=== PATIENT | male | born 1970 | race African-American/Black ===

== ENCOUNTER 2021-11-13 15:09 | Outpatient (CLI) | payer MEDICARE ==
[2021-11-13 16:39] LABS: Anion Gap 14 mmol/L (10-20); BUN (Urea Nitrogen) 10 mg/dL (8.9-20.6); Calc. Creatinine Clearance 0 mL/min (70-130); Calcium 9.7 mg/dL (7.8-10.44); Carbon Dioxide 30 mmol/L (22-29); Chloride 100 mmol/L (98-107); Glucose 81 mg/dL (70-105); Potassium 3.4 mmol/L (3.5-5.1); Sodium 141 mmol/L (136-145)
[2021-11-14 11:22] LABS: SARS-CoV-2 PCR by NAA Not Detected (NotDetected)
== END 2021-11-13 15:10 | disposition home or self-care (01) ==
LOC: CSHLAB 15:09
PROVIDERS: ATTEND Otolaryngology Otolaryngic Allergy
DX: Z01.818 Encounter for other preprocedural examination (principal); Z20.822 Contact with and (suspected) exposure to COVID-19
CPT/HCPCS: 80048; 93005; 93010; U0003; U0005

== ENCOUNTER 2021-11-18 09:26 | Observation (INO) | payer MEDICARE, MEDICAID ==
[2021-11-17 12:14] VITALS: BMI 35.5
[2021-11-18] MEDS ORDERED: Oxymetazoline HCl 0.05% ( 15 ML ) ONE (09:43)
[2021-11-18] MEDS ORDERED: Lidocaine 1% MPF 2 ML VIAL ONE (09:43)
[2021-11-18] MEDS ORDERED: Lidocaine 1% PF 5 ML VIAL ONE (10:16)
[2021-11-18] MEDS ORDERED: Ondansetron PF 4 MG/2 ML Vial ONE (10:16)
[2021-11-18] MEDS ORDERED: Rocuronium Bromide 10 MG/ML (10ML VIAL) ONE (10:16)
[2021-11-18] MEDS ORDERED: Midazolam HCl 2 mg/2 ml Vial ONE ×2 (10:16→10:33)
[2021-11-18] MEDS ORDERED: Fentanyl 250 MCG/5 ML VIAL ONE (10:16)
[2021-11-18] MEDS ORDERED: PROPOFOL 40 ML ONE (10:16)
[2021-11-18] MEDS ORDERED: Glycopyrrolate 0.2 MG/ML 5 ML SYRINGE ONE (10:17)
[2021-11-18] MEDS ORDERED: Dexamethasone 4 mg/ml Vial ONE (10:17)
[2021-11-18] MEDS ORDERED: Lidocaine 1% w/Epinephrine 1:100K 30 ML VIAL ONE (10:22)
[2021-11-18] MEDS ORDERED: Mupirocin 2% Ointment 22 GM Tube ONE (10:22)
[2021-11-18] MEDS ORDERED: CEFAZOLIN 1 GM VIAL ONE (10:23)
[2021-11-18] MEDS ORDERED: Ondansetron PF 4 MG/2 ML Vial IVP PRN (12:53)
[2021-11-18] MEDS ORDERED: Ondansetron ODT 4 MG TAB PO PRN (12:53)
[2021-11-18] MEDS ORDERED: Acetaminophen 325 MG TAB PO PRN (12:53)
[2021-11-18] MEDS ORDERED: Acetaminophen/Codeine 30-300mg Tablet PO PRN (12:57)
[2021-11-18] MEDS: Sodium Chloride 0.65% Nasal 44 ML BOT EA NARE SCH ×2 (16:35→21:29)
[2021-11-18] MEDS: AMOXicillin 250 MG CAP PO SCH (21:23)
[2021-11-19 05:27] VITALS: BP 129/74; TEMP 97.2
[2021-11-19] MEDS ORDERED: Loratadine 10 MG TAB PO SCH (09:00)
[2021-11-19] MEDS ORDERED: Hydrochlorothiazide 25 MG TAB PO SCH (09:00)
[2021-11-19] MEDS ORDERED: Amlodipine 5 MG TAB PO SCH (09:00)
[2021-11-19] MEDS ORDERED: Rosuvastatin 10 MG TAB PO SCH (09:00)
[2021-11-19] MEDS ORDERED: Montelukast Sodium 10 mg Tablet PO SCH (09:00)
[2021-11-19] MEDS ORDERED: Losartan Potassium 50 MG TAB PO SCH (09:00)
[2021-11-19] MEDS: AMOXicillin 250 MG CAP PO SCH (10:47)
[2021-11-19] MEDS: Sodium Chloride 0.65% Nasal 44 ML BOT EA NARE SCH (10:48)
== END 2021-11-19 09:21 | disposition home or self-care (01) ==
LOC: CSHSDC 09:26 → CSHERHOLD 11:04 → CSHTELE 14:50
PROVIDERS: ADMIT Otolaryngology Otolaryngic Allergy; ATTEND Otolaryngology Otolaryngic Allergy
DX: J34.3 Hypertrophy of nasal turbinates (principal); G47.33 Obstructive sleep apnea (adult) (pediatric); J34.2 Deviated nasal septum; J32.9 Chronic sinusitis, unspecified; J30.1 Allergic rhinitis due to pollen; J34.89 Other specified disorders of nose and nasal sinuses; Z79.899 Other long term (current) drug therapy
CPT/HCPCS: 30140; 30520; 31295; 94760; 96374; G0378 ×2; J0690; J1100; J2250; J2405; J2704; J3010

== ENCOUNTER 2023-01-28 08:10 | Outpatient (CLI) | payer OTHER | END 2023-01-28 08:11 | disposition home or self-care (01) | LOC: CSHCT 08:10 | PROVIDERS: ATTEND Neurological Surgery | DX: R94.02 Abnormal brain scan (principal); I67.1 Cerebral aneurysm, nonruptured | CPT/HCPCS: 70496 ==